=== PATIENT | male | born 1975 | race Two or more races ===

== ENCOUNTER 2020-05-04 13:47 | Emergency (ER) | payer SELFPAY ==
--- NOTE | 2020-05-04 14:05 | PDOC ---
Rapid Medical Evaluation Chief Complaint: Abscess Boil Time Seen by Provider: 05/04/20 14:03 Medical Evaluation: Allergies Allergy/AdvReac Type Severity Reaction Status Date / Time No Known Allergies Allergy Verified 05/04/20 14:03 05/04/20 14:04 I have performed a brief in-person evaluation of this patient. The patient presents with a chief complaint of: abscess to right under arm x 1 week. Denies fever Pertinent physical exam findings: 3cm abscess with mild erythema to right a xillar. afebrile I have ordered the following: nothing The patient will proceed to the ED for further evaluation. Discharge Disposition - Diagnosis Axillary abscess - Discharge Dispostion Condition at time of disposition: Stable - Referrals - Patient Instructions - Post Discharge Activity
[2020-05-04 14:06] VITALS: BP 148/86; PULSE 75; TEMP 98.4; BMI 25.5
[2020-05-04] MEDS ORDERED: LIDOCAINE HCL 1%, 10 MG/ML (50 mL VIAL) SQ ONE (14:35)
[2020-05-04] MEDS ORDERED: LIDOCAINE HCL 1%, 10 MG/ML (20ML VIAL) ONE (14:37)
--- NOTE | 2020-05-04 15:08 | PDOC ---
History of Present Illness - General Chief Complaint: Abscess Boil Stated Complaint: RT.AXILLA LUMP Time Seen by Provider: 05/04/20 14:03 - History of Present Illness Initial Comments: 05/04/20 15:05 44-year-old male without comorbidities presents for evaluation of painful area in the right axilla x8 days Past History - Medical History Allergies/Adverse Reactions: Allergies Allergy/AdvReac Type Severity Reaction Status Date / Time No Known Allergies Allergy Verified 05/04/20 14:03 Home Medications: Ambulatory Orders Cephalexin [Keflex] 500 mg PO QID #40 capsule 05/04/20 Ibuprofen [Motrin -] 600 mg PO TID #30 tablet 05/04/20 Sulfamethoxazole/Trimethoprim [Bactrim Ds -] 1 tab PO BID #14 tablet 05/04/20 COPD: No Other medical history: DENIES - Immunization History Immunization Up to Date: Yes - Psycho-Social/Smoking History Smoking History: Never smoked - Substance Abuse Hx (Audit-C & DAST Scrn) How often the patient has a drink containing alcohol: Never Score: In Men: 4 or > Positive; In Women: 3 or > Positive: 0 Screen Result (Pos requires Nsg. Audit-10AR): Negative In the last yr the pt used illegal drug/Rx for NonMed reason: No Score: Yes response is considered Positive: 0 Screen Result (Positive result requires Nsg. DAST-10): Negative Review of Systems - Review of Systems Constitutional: No: Fever *Physical Exam - Vital Signs Last Vital Signs Temp Pulse Resp BP Pulse Ox 98.4 F 75 18 148/86 100 05/04/20 14:03 05/04/20 14:03 05/04/20 14:03 05/04/20 14:03 05/04/20 14:03 - Physical Exam 05/04/20 15:06 There is an approximately 3 cm circumferential fluctuant area of erythema warmth tenderness no induration with mild surrounding erythema in the right axilla no gross sensorimotor deficits right upper extremity ED Treatment Course - Medications Given in the ED: ED Medications Discontinued Medications Generic Name Dose Route Start Last Admin Trade Name Freq PRN Reason Stop Dose Admin Lidocaine HCl 20 ml 05/04/20 14:35 05/04/20 14:38 Xylocaine 1% SQ 05/04/20 14:36 20 ml ONCE ONE Administration Medical Decision Making - Medical Decision Making 05/04/20 15:06 Under aseptic technique 20 cc of 1% lidocaine was injected without epinephrine into the right axilla around the margins of the abscess. An 11 blade was used to incise the most fluctuant area of the abscess. The area was deloculated with a needle freight delivery driver packed with quarter inch iodoform and a dry sterile dressing placed. Post procedure instructions were given. Patient will be placed on Bactrim and Keflex follow-up in 2 days for packing removal and possibly transition to wet-to-dry dressing changes. Follow-up with general surgery in the meantime. I have reviewed the pathophysiology with the patient. They are in agreement with the treatment plan all questions were answered to their satisfaction. Understanding for follow-up without fail was also conveyed to the patient. Again they are in agreement. Discharge - Discharge Information Problems reviewed: Yes Clinical Impression/Diagnosis: Axillary abscess Condition: Stable Disposition: HOME - Admission No - Follow up/Referral Referrals: Ham West MD [Staff Physician] - - Patient Discharge Instructions Additional Instructions: Please keep the dressing on for the next 48 hours. Return to the emergency room in 48 hours for packing removal. Without fail follow-up with general surgery in 1 to 2 days for further evaluation and treatment options. Follow-up without fail. You must return to the emergency room in 48 hours without fail. Please take the antibiotics as directed as well as the Motrin. Please take Motrin on a full stomach and if it bothers her stomach you should discontinue the medication. Return to the emergency room in 48 hours or sooner if problems develop. - Post Discharge Activity
== END 2020-05-04 15:16 | disposition home or self-care (01) ==
LOC: JERFT 13:47
DX: L02.411 Cutaneous abscess of right axilla (principal)
CPT/HCPCS: 99283-25

== ENCOUNTER 2020-05-06 13:17 | Emergency (ER) | payer SELFPAY ==
[2020-05-06 13:25] VITALS: BP 134/86; PULSE 72; TEMP 97.6; BMI 25.0
--- NOTE | 2020-05-06 13:55 | PDOC ---
Suture Removal/Wound Check HPI - History of Present Illness Chief Complaint: Revisit,Wound Recheck Stated Complaint: F/U Time Seen by Provider: 05/06/20 13:26 History Source: Yes: Patient, Old Records Exam Limitations: Yes: No Limitations Treated at: [facility] Date of Last ED visit: 05/04/20 - Previous ED Treatment Type of procedure performed on last visit: Yes: I&D of Abscess Past History - Medical History Allergies/Adverse Reactions: Allergies Allergy/AdvReac Type Severity Reaction Status Date / Time No Known Allergies Allergy Verified 05/06/20 13:25 Home Medications: Ambulatory Orders Cephalexin [Keflex] 500 mg PO QID #40 capsule 05/04/20 Ibuprofen [Motrin -] 600 mg PO TID #30 tablet 05/04/20 Sulfamethoxazole/Trimethoprim [Bactrim Ds -] 1 tab PO BID #14 tablet 05/04/20 COPD: No - Immunization History Immunization Up to Date: Yes - Psycho-Social/Smoking History Smoking History: Never smoked Have you smoked in the past 12 months: No Information on smoking cessation initiated: No - Substance Abuse Hx (Audit-C & DAST Scrn) How often the patient has a drink containing alcohol: Never Score: In Men: 4 or > Positive; In Women: 3 or > Positive: 0 Screen Result (Pos requires Nsg. Audit-10AR): Negative In the last yr the pt used illegal drug/Rx for NonMed reason: No Score: Yes response is considered Positive: 0 Screen Result (Positive result requires Nsg. DAST-10): Negative Suture Removal/Wound Check PE - Physical Exam Laceration/Wound Check Symptoms: reports: None Current Severity Level: None Maximum Severity Level: None Pain Localization: None Location of Laceration/Wound: right: Arm (Axilla) Pain Radiation: None *Review of Systems - Review of Systems Able to Perform ROS?: Yes All Other Systems: Reviewed and Negative *Physical Exam - Vital Signs Last Vital Signs Temp Pulse Resp BP Pulse Ox 97.6 F 72 17 134/86 97 05/06/20 13:22 05/06/20 13:22 05/06/20 13:22 05/06/20 13:22 05/06/20 13:22 - Physical Exam General Appearance: Yes: Appropriately Dressed. No: Apparent Distress Integumentary: positive: Normal Color, Dry, Warm, Other (Right axillary abscess noted. No discharge or drainage from I&D site. No tenderness, fluctuance present. Mild induration noted without erythema.) Medical Decision Making - Medical Decision Making 05/06/20 13:58 A/P: 44-year-old male for wound check of right axilla abscess I&D site without discharge, fluctuance or drainage present. Packing removed Mildly indurated without erythema present. Patient discharged to follow-up with general surgery as previously recommended and patient is to continue all previously prescribed medications. Patient is aware that he does not need additional visits to the emergency department for continued evaluation. Discharge home Portions of this note have been documented using voice recognition software. As a result, errors may occur in the boom stick man process. Effort has been made to correct all grammatical and boom stick man error, but some may have been missed which may produce sporadic inaccurate boom stick man or nonsensical phrases. Discharge - Discharge Information Problems reviewed: Yes Clinical Impression/Diagnosis: Wound check, abscess Condition: Stable Disposition: HOME - Admission No - Follow up/Referral - Patient Discharge Instructions Additional Instructions: Continue previously prescribed antibiotics and pain medication. Continue warm compresses to wound 3 times a day. It is recommended that you follow-up with general surgery according to previous discharge instructions. Return to the emergency department for any new or worsening symptoms. Thank you very much for choosing us to provide your emergent healthcare needs. - Post Discharge Activity
== END 2020-05-06 13:56 | disposition home or self-care (01) ==
LOC: JERFT 13:17
DX: Z48.02 Encounter for removal of sutures (principal)
CPT/HCPCS: 99281-25